=== PATIENT | female | born 1990 | race Caucasian/White ===

== ENCOUNTER 2019-01-22 18:17 | Inpatient (IN) ==
[2019-01-22] MEDS ORDERED: PANTOPRAZOLE 40 MG VIAL IV STA (19:05)
[2019-01-22] MEDS ORDERED: ONDANSETRON 4 MG/2 ML VIAL IV STA (19:05)
[2019-01-22] MEDS ORDERED: SODIUM CHLORIDE 0.9% 1,000 ML IV STA (19:05)
[2019-01-22 19:15] LABS: Basophils % 0.7 % (0.0-0.8); Eosinophils # 0.3 10*3/uL (0.0-0.87); Eosinophils % 5.5 % (0.00-10.9); Hematocrit 39.4 VOL% (35.7-47.0); Immature Granulocytes % 0.4 %; Immature Granulocytes Absolute 0.02 #; Lymphocytes % 18.2 % (21.3-54.2); Mean Corpuscular HGB Conc 30.5 GM/DL (32-36); Mean Corpuscular Hemoglobin 29 PG (27-34); Mean Corpuscular Volume 94.5 FL (87-102); Monocytes # 0.3 10*3/uL (0.11-0.8); Monocytes % 5.3 % (1.7-12.7); Neutrophils # 3.8 10*3/uL (1.4-7.4); Neutrophils % 69.9 % (38.7-73.9); Platelet Count 321 T/CUMM (130-400); Red Blood Count 4.17 MC/CUMM (3.8-5.5); Red Cell Distribution Width 25.1 % (9.3-17.3); White Blood Count 5.4 T/CUMM (4-12)
[2019-01-22 19:20] LABS: INR 1.1; PT Patient Result 11.5 SECS; Partial Thromboplastin Time 25.6 SECS (0-40)
[2019-01-22 19:26] LABS: Alanine Aminotransferase 30 U/L (13-56); Alkaline Phosphatase 66 U/L (45-117); Amylase 64 U/L (25-115); Aspartate Amino Transferase 10 U/L (0-37); Bilirubin,Total < 0.39 MG/DL (0.2-1.0); Blood Urea Nitrogen 12 MG/DL (7-18); Calcium 9.2 MG/DL (8.5-10.1); Glucose 94 MG/DL (74-106); Osmolality,Calculated 280.3 MOS/KG (273-304); Potassium 3.1 MMOL/L (3.5-5.1); Sodium 141 MMOL/L (136-145)
[2019-01-22] MEDS ORDERED: HYDROmorphone 2 MG/1 ML VIAL IV STA (19:38)
[2019-01-22] MEDS ORDERED: diphenhydrAMINE 50 MG/1 ML VIAL IV STA (19:38)
[2019-01-22] MEDS ORDERED: POTASSIUM CHLORIDE 20 MEQ TABLET PO STA (20:08)
[2019-01-22 20:12] LABS: Anisocytosis 1+
[2019-01-22 20:13] LABS: Ovalocytes 1+
[2019-01-22 20:18] LABS: Poikilocytosis 1+
[2019-01-22 20:19] LABS: Platelet Estimate Normal
[2019-01-22] MEDS ORDERED: HYDROmorphone 2 MG/1 ML VIAL IV ONE (21:15)
[2019-01-22] MEDS ORDERED: SODIUM CHLORIDE 0.9% 1,000 ML IV SCH (22:01)
[2019-01-22] MEDS ORDERED: ACETAMINOPHEN 325 MG TABLET PO PRN (22:01)
[2019-01-22] MEDS ORDERED: POTASSIUM CHLORIDE RIDER 20 MEQ in PREMIX 1 EACH IV PRN (22:09)
[2019-01-22] MEDS: PROMETHAZINE 25 MG/1 ML VIAL IM PRN (23:04)
[2019-01-22] MEDS: HYDROmorphone 2 MG/1 ML VIAL IV PRN (23:31)
[2019-01-22] MEDS: POTASSIUM CHLORIDE RIDER 10 MEQ in PREMIX 1 EACH IV PRN (23:31)
[2019-01-23] MEDS: PIPERACILLIN/TAZOBACTAM 3,375 MG in SODIUM CHLORIDE 0.9% 100 ML IV SCH ×4 (01:02→22:40)
[2019-01-23] MEDS: HYDROmorphone 2 MG/1 ML VIAL IV PRN ×8 (03:36→22:40)
[2019-01-23] MEDS: ONDANSETRON 4 MG/2 ML VIAL IV PRN ×2 (03:37→20:41)
[2019-01-23] MEDS: POTASSIUM CHLORIDE RIDER 10 MEQ in PREMIX 1 EACH IV PRN (05:45)
[2019-01-23 06:15] LABS: Basophils # 0.1 10*3/uL (0.0-0.2); Basophils % 1.1 % (0.0-0.8); Eosinophils # 0.7 10*3/uL (0.0-0.87); Eosinophils % 12.8 % (0.00-10.9); Hematocrit 30.2 VOL% (35.7-47.0); Immature Granulocytes % 1.5 %; Immature Granulocytes Absolute 0.08 #; Lymphocytes # 1.6 10*3/uL (1.4-4.0); Lymphocytes % 29.9 % (21.3-54.2); Mean Corpuscular HGB Conc 30.5 GM/DL (32-36); Mean Corpuscular Hemoglobin 29 PG (27-34); Mean Corpuscular Volume 94.7 FL (87-102); Mean Platelet Volume 10.1 FL (9.6-12.0); Monocytes # 0.4 10*3/uL (0.11-0.8); Monocytes % 7.7 % (1.7-12.7); Neutrophils # 2.6 10*3/uL (1.4-7.4); Platelet Count 219 T/CUMM (130-400); Red Blood Count 3.19 MC/CUMM (3.8-5.5); Red Cell Distribution Width 24.9 % (9.3-17.3); White Blood Count 5.5 T/CUMM (4-12)
[2019-01-23 06:16] LABS: Hemoglobin 9.2 GM/DL (12.0-16.0)
[2019-01-23 06:33] LABS: Albumin 3.2 G/DL (3.4-5.0); Bilirubin,Total 0.6 MG/DL (0.2-1.0); Calcium 8.6 MG/DL (8.5-10.1); Potassium 3.9 MMOL/L (3.5-5.1); Total Protein 6.2 G/DL (6.4-8.3)
[2019-01-23 06:34] LABS: Eosinophils 10 % (0-10); Lymphocytes 39 % (20-55); Platelet Estimate Normal; Polychromasia Few; Segmented Neutrophils 48 % (50-85); Target Cells Few; Total Cells Counted 100
[2019-01-23] MEDS: PROMETHAZINE 25 MG/1 ML VIAL IM PRN ×3 (07:49→18:25)
[2019-01-23] MEDS ORDERED: PANTOPRAZOLE 40 MG VIAL IV SCH (09:00)
[2019-01-23] MEDS: PANTOPRAZOLE 40 MG VIAL IV SCH ×2 (09:31→20:41)
[2019-01-23] MEDS: LACTATED RINGERS 1,000 ML IV SCH (11:06)
[2019-01-23 14:25] LABS: Hematocrit 30.9 VOL% (35.7-47.0); Hemoglobin 9.3 GM/DL (12.0-16.0)
[2019-01-23 15:40] LABS: Apearance,Urine Slightly Hazy (Clear); Bilirubin,Urine Negative (Negative); Blood, Urine Negative (Negative); Glucose,Urine (UA) Negative (Negative); Ketones,Urine Negative (Negative); Mucus,Urine Occasional /LPF (Occasional); Nitrite,Urine Negative (Negative); Protein,Urine Negative; Squamous Epithelial Cell,Urine Occasional /HPF (0-10); Urine Color Yellow (Yellow); Urine Urobilinogen < 2.0 EU/DL (0.2-1.0); WBC,Urine 6 /HPF (0-6)
[2019-01-23 15:42] LABS: Barbiturates Screen,Urine Negative (Negative); Benzodiazepines Screen,Urine Negative (Negative); Cannabinoid Screen,Urine Negative (Negative); Opiate Screen,Urine Positive (Negative); Phencyclidine Screen,Urine Negative (Negative)
[2019-01-23 21:48] LABS: Hematocrit 29.2 VOL% (35.7-47.0); Hemoglobin 8.8 GM/DL (12.0-16.0)
[2019-01-24] MEDS: HYDROmorphone 2 MG/1 ML VIAL IV PRN ×11 (00:39→23:49)
[2019-01-24] MEDS: PROMETHAZINE 25 MG/1 ML VIAL IM PRN ×4 (04:56→21:58)
[2019-01-24] MEDS: PIPERACILLIN/TAZOBACTAM 3,375 MG in SODIUM CHLORIDE 0.9% 100 ML IV SCH (06:47)
[2019-01-24 07:11] LABS: Basophils % 0.8 % (0.0-0.8); Eosinophils # 1.2 10*3/uL (0.0-0.87); Eosinophils % 24.2 % (0.00-10.9); Hematocrit 28.3 VOL% (35.7-47.0); Hemoglobin 8.6 GM/DL (12.0-16.0); Immature Granulocytes % 0.2 %; Immature Granulocytes Absolute 0.01 #; Lymphocytes # 1.1 10*3/uL (1.4-4.0); Lymphocytes % 23.4 % (21.3-54.2); Mean Corpuscular HGB Conc 30.4 GM/DL (32-36); Mean Corpuscular Hemoglobin 29 PG (27-34); Mean Corpuscular Volume 95.3 FL (87-102); Mean Platelet Volume 9.6 FL (9.6-12.0); Monocytes # 0.4 10*3/uL (0.11-0.8); Neutrophils # 2.1 10*3/uL (1.4-7.4); Neutrophils % 43.4 % (38.7-73.9); Platelet Count 193 T/CUMM (130-400); Red Blood Count 2.97 MC/CUMM (3.8-5.5); Red Cell Distribution Width 24.1 % (9.3-17.3); White Blood Count 4.9 T/CUMM (4-12)
[2019-01-24 07:17] LABS: INR 1.1; PT Patient Result 11.4 SECS; Partial Thromboplastin Time 26.5 SECS (0-40)
[2019-01-24 07:28] LABS: Calcium 8.3 MG/DL (8.5-10.1); Potassium 3.9 MMOL/L (3.5-5.1)
[2019-01-24 07:31] LABS: Eosinophils 18 % (0-10); Lymphocytes 25 % (20-55); Segmented Neutrophils 53 % (50-85); Total Cells Counted 100
[2019-01-24 07:32] LABS: Hypochromasia 1+; Ovalocytes Slight; Platelet Estimate Adequate
[2019-01-24] MEDS: PANTOPRAZOLE 40 MG VIAL IV SCH (09:02)
[2019-01-24] MEDS ORDERED: LIDOCAINE 2% 5 ML VIAL ONE (10:00)
[2019-01-24] MEDS ORDERED: MIDAZOLAM 2 MG/2 ML VIAL ONE (10:00)
[2019-01-24] MEDS ORDERED: PROPOFOL 200 MG/20 ML VIAL IV ONE (10:00)
[2019-01-24] MEDS: LACTATED RINGERS 1,000 ML IV SCH (17:37)
[2019-01-24] MEDS: ONDANSETRON 4 MG/2 ML VIAL IV PRN (19:48)
[2019-01-25] MEDS: HYDROmorphone 2 MG/1 ML VIAL IV PRN ×4 (02:47→10:16)
[2019-01-25] MEDS: PANTOPRAZOLE 40 MG VIAL IV SCH ×2 (02:48→08:19)
[2019-01-25] MEDS: PROMETHAZINE 25 MG/1 ML VIAL IM PRN ×2 (05:53→10:22)
[2019-01-25 07:47] VITALS: BP 117/81
[2019-01-25] MEDS: ONDANSETRON 4 MG/2 ML VIAL IV PRN (08:19)
== END 2019-01-25 14:03 | disposition home or self-care (01) | DRG 378 ==
LOC: N.ED 18:17 → SUATTDRO 21:15 → N.EDINP 21:15 → N.5E 21:58
PROVIDERS: ADMIT Surgery; ATTEND Internal Medicine